=== PATIENT | male | born 1985 | race Caucasian/White ===

== ENCOUNTER 2022-11-22 10:48 | Emergency (ER) | payer SELFPAY ==
[2022-11-22 10:49] VITALS: TEMP 36.6; BMI 24.4
[2022-11-22 10:52] VITALS: BP 130/79; PULSE 78; RESP 16; O2SAT 100
--- NOTE | 2022-11-22 10:59 | EX.ED.DYSGE1 ---
HPI History of Present Illness Chief Complaint: Ear Problem PFSH PFSH Home Medications Ibuprofen [Motrin] 800 mg PO TID #20 tabs 07/01/14 [Rx Last Taken Unknown] clindamycin HCl 150 mg capsule 300 mg (2 x 150 mg) PO 4X/DAY ##80 07/01/14 [Rx Last Taken Unknown] oxycodone-acetaminophen 5 mg-325 mg tablet 1 - 2 tab PO Q4H PRN PRN Pain #20 tabs 07/01/14 [Rx Last Taken Unknown] Allergy/AdvReac Type Severity Reaction Status Date / Time No Known Allergies Allergy Verified 11/22/22 10:51 Social History (System 01/13/21 @ 07:43 by Gisell Reese) Smoking Status: Current every day smoker tobacco type: cigarettes EXAM Physical Exam Const Vital Signs: 11/22/22 10:49 11/22/22 10:52 11/22/22 12:01 Temperature 97.8 F Temperature Source Temporal Pulse Rate 78 87 Respiratory Rate 16 19 H Blood Pressure 130/79 H Blood Pressure Mean 96 Pulse Ox 100 100 Oxygen Delivery Method Room Air 11/22/22 13:26 Temperature Temperature Source Pulse Rate Respiratory Rate 18 Blood Pressure 135/79 H Blood Pressure Mean 97 Pulse Ox 100 Oxygen Delivery Method MDM MDM MDM Narrative Medical decision making narrative: HISTORY OF PRESENT ILLNESS: 37-year-old male here for dizziness. The patient states he was given an oral steroid and Flonase on Tuesday. He was given his medicine secondary to left ear pain. States left ear pain is better however he now experiences dizziness. He further states dizziness is exacerbated by head movement and rising from a seated position. States is worse in the morning when getting up from bed. He denies any bleeding diathesis. Denies any vomiting or diarrhea. Denies any slurred speech, facial drooping, loss of vision, weakness or numbness. He denies any chest pain, palpitations, shortness of breath. REVIEW OF SYSTEMS: Pertinent positives: Dizziness Pertinent negatives: Ear pain, syncope, headache, neck pain, chest pain, shortness of breath, focal weakness PHYSICAL EXAM: Nursing triage notes reviewed, Vital signs reviewed Constitutional: please see mdm HENT: MMM, bilateral TMs pearly lara, no erythema, no middle ear effusion Eyes: Pupils equal round and reactive to light, Extraocular muscles intact Neck: No stridor, no JVD, full neck ROM Lungs: Clear to auscultation, No wheezing or rales. No increased work of breathing, no conversational dyspnea, no accessory muscle use, no nasal flaring. No respiratory distress noted Heart: Regular rate and rhythm, No murmurs, No rubs and No gallops, 2+ distal pulses (radial, femoral, posterior tibial) in all extremities Abdomen: Soft, there is no tenderness, rigidity, rebound or guarding, no obvious peritoneal signs, no palpable pulsatile abdominal masses, no auscultated abdominal bruit : No CVAT Extremities: No edema Neuro: Alert and oriented x3, neuro exam at baseline, cranial nerves II through XII are intact. No pain with extraocular muscle movement. There is negative test of skew. 5 of 5 strength in upper and lower extremities in flexion extension. Intact sensation to light touch in upper and lower extremity dermatomes. No truncal or extremity ataxia. No dysdiadochokinesia. Normal gait. 2+ reflexes in upper and lower extremities. No meningeal signs. Negative Babinski. NIH of 0. Skin: No rash or lesions noted MEDICAL DECISION MAKING: Chief Complaint: Dizziness External records reviewed: Last ED visit 2014 Factors affecting care: none Social determinants of health: Tobacco use disorder History obtained from others: none Consults: none MDM Narrative: Patient was hemodynamically stable, afebrile, nontoxic-appearing. Patient appeared well, is nontoxic. A nonfocal neurologic exam. His NIH was 0. He had no signs of ataxia or posterior circulation stroke I considered the following differential diagnosis: CVA/TIA, anemia, electro disturbance, arrhythmia, I considered CVA/TIA however the patient had no active dizziness at this time. No nystagmus, he had negative hints exam, and NIH of 0. Low suspicion for posterior circulation CVA at this time. Patient also did not have any symptoms to suggest current BPPV. I gave the patient 1 L normal saline for rehydration I obtained a broad lab and imaging work-up to further elucidate etiology patient complaints including ruling out signs of myocardial schema, anemia, electrolyte disturbance, thoracic abnormalities, ALL IMAGES (IF OBTAINED) HAVE BEEN PERSONALLY REVIEWED AND INTERPRETED BY MYSELF. I have personally reviewed the patient's chest x-ray. Chest x-ray is unremarkable for pulmonary edema, pneumothorax, pneumonia or focal cardiopulmonary abnormality. EKG with normal sinus rhythm, normal axis, normal intervals, no ST or T wave changes to suggest ischemia. No evidence of WPW, Brugada, ARVD. CBC without leukocytosis, severe anemia, no thrombocytopenia. Troponin is negative, no evidence of myocardial ischemia CMP without evidence of acute kidney injury, significant electrolyte abnormality, anion gap, no evidence hepatobiliary pathology. The synthesis of the patient's history, physical exam, labs and images suggest NO evidence of acute life-threatening etiology. Unclear etiology however there is no indication for admission or further ED evaluation at this time. The patient was given strict return precautions and follow-up instructions The patient and/or family, caregivers express understanding. The patient and/or family, caregivers agrees with the plan. Shared decision making: I will have a discussion with the patient and or visitors regarding risk/benefits of further testing or admission. They will be made aware of of the risk/benefits inherent in this decision they will be given the opportunity to voice understanding. Total critical care time today provided was at least 0 minutes. This excludes separately billable procedures. Critical care time (if documented) is secondary to the patient having high probability of clinically significant/life threatening deterioration in the patient's condition which required my urgent intervention. Impression: 1. Dizziness Dispo: Discharge Lab Data Labs: Laboratory Results - last 24 hr 11/22/22 11:35 WBC 9.6 RBC 5.20 Hgb 14.8 Hct 46.0 MCV 88.5 MCH 28.5 MCHC 32.2 RDW Std Deviation 43.1 RDW Coeff of Lorie 13.2 Plt Count 275 MPV 10.2 Sodium 142 Potassium 4.0 Chloride 109 H Carbon Dioxide 28.0 Anion Gap 5 BUN 16 Creatinine 1.05 Estim Creat Clear Calc 83.79 Est GFR (MDRD) Af Amer 102 Est GFR (MDRD) Non-Af 84 BUN/Creatinine Ratio 15.2 Glucose 113 H Calcium 8.9 Total Bilirubin 0.30 AST 15 ALT 27 Alkaline Phosphatase 51 Troponin I High Sens 19 Total Protein 7.0 Albumin 3.7 Globulin 3.3 Albumin/Globulin Ratio 1.1 Radiography Diagnostic Testing: Clinical Impression(s) from Imaging Studies Chest X-Ray 11/22/22 11:35 IMPRESSION: No radiographic evidence of acute cardiopulmonary disease. Electronically Signed: Oscar Christianson MD at 11:51 EDT , Discharge Plan Triage Chief Complaint: Ear Problem ED Provider: Patrick Wheeler Dx/Rx/DC Orders Instructions: ED Dizziness, Uncertain Cause Prescriptions: No Action clindamycin HCl 150 MG capsule 300 mg PO 4X/DAY Qty: 80 0RF oxycodone-acetaminophen 1 TABLET tablet 1 - 2 tab PO Q4H PRN PRN (Reason: Pain) Qty: 20 0RF Ibuprofen [Motrin] 800 MG tablet 800 mg PO TID Qty: 20 0RF Stand Alone Forms: ED Work / School Excuse Primary Care Provider: Care Physician,No Primary Referrals: Care Physician,No Primary [Primary Care Provider] - Activity Restrictions/Additional Instructions: Thank you for trusting us with your care today! Please take Tylenol (2 pills, 650 mg), ibuprofen (2 pills, 400 mg) every 6 hours as needed for pain and fever control. Please return to the emergency department if your symptoms change or worsen. Specifically develop focal numbness weakness, visual changes, slurred speech, difficulty with coordination, difficulty with balance. Please follow with your primary care physician for further outpatient evaluation and management. Disposition Disposition: Home, Self Care Discharge Date/Time: 11/22/22 13:31
--- NOTE | 2022-11-22 11:22 | EKG12_ITS ---
Test Reason : EAR PAIN Blood Pressure : / mmHG Vent. Rate : 076 BPM Atrial Rate : 076 BPM P-R Int : 128 ms QRS Dur : 090 ms QT Int : 354 ms P-R-T Axes : 077 058 053 degrees QTc Int : 398 ms Normal sinus rhythm Minimal voltage criteria for LVH, may be normal variant ( Sokolow-Melgar ) Borderline ECG Confirmed by HECTOR ZARAGOZA, JAY ([id number]), visual effects editor DOT JONES ([id number]) on 11/25/2022 1:51:09 PM Referred By: Confirmed By:JAY YOUNG MD
--- NOTE | 2022-11-22 11:27 | NURSING ---
NO OLD EKG
--- NOTE | 2022-11-22 11:35 | RAD_ITS ---
INDICATION: dizziness EXAMINATION/TECHNIQUE: X-RAY - XR Chest 1 View COMPARISON: No relevant prior comparison study available FINDINGS: LINES/DEVICES: None. LUNGS: No consolidation, edema or effusion. No pneumothorax. MEDIASTINUM AND CARDIOVASCULAR STRUCTURES: Cardiac silhouette not enlarged. Central airways and mediastinal contour are unremarkable. BONES AND SOFT TISSUES: Unremarkable. RAD/Chest 1 View (Portable) IMPRESSION: No radiographic evidence of acute cardiopulmonary disease. Electronically Signed: Oscar Christianson MD at 11:51 EDT ,
[2022-11-22] MEDS: 0.9% Normal Saline (1000mL) 1,000 ML 1000 ML IV (11:38)
[2022-11-22 11:45] LABS: Hemoglobin 14.8 g/dL (13.0-16.5); Mean Corp Hgb Conc 32.2 g/dL (32-36); Mean Corpuscular Hgb 28.5 pg (27.0-32.0); Mean Corpuscular Volume 88.5 fL (80-94); Mean Platelet Vol. 10.2 fl (6.2-12.0); Platelet Count 275 K/mm3 (150-450); RBC Distribution Width CV 13.2 % (11.6-14.6); RBC Distribution Width SD 43.1 fl (35.1-43.9); White Blood Count 9.6 K/mm3 (4.4-11.0)
[2022-11-22 12:01] VITALS: PULSE 87; RESP 19; O2SAT 100
[2022-11-22 12:02] LABS: ALB/GLOB Ratio 1.1 RATIO (0.9-2.4); AST(SGOT) 15 U/L (15-37); Alanine Aminotransfer ALT/SGPT 27 U/L (16-61); Albumin, Serum 3.7 g/dL (3.2-5.0); Alkaline Phosphatase 51 U/L (45-117); Anion Gap 5 (5-15); BUN 16 mg/dL (7-18); BUN/Creat Ratio 15.2 RATIO (10-20); Calcium,Total 8.9 mg/dL (8.5-10.1); Chloride 109 mmol/L (98-107); Creatinine, Serum 1.05 mg/dL (0.70-1.30); EST Glomerular Filtration Rate 84 mL/min (>60); Est Glom Filt Rate - Afr Amer 102 mL/min (>60); Estimated Creatinine Clearance 83.79 ml/min; Globulin 3.3 g/dL (2.2-4.2); Glucose 113 mg/dL (74-106); Sodium Level 142 mmol/L (136-145); Troponin-I HS 19 pg/mL (3.0-78.0)
[2022-11-22 13:26] VITALS: BP 135/79; RESP 18; O2SAT 100
== END 2022-11-22 13:31 | disposition home or self-care (01) ==
PROVIDERS: Emergency Provider Emergency Medicine; Visit Provider Emergency Medicine
DX: R42 Dizziness and giddiness (principal); F17.210 Nicotine dependence, cigarettes, uncomplicated; H92.02 Otalgia, left ear
CPT/HCPCS: 71045; 80053; 84484; 85027; 93005; 99283; J7030; A4216